=== PATIENT | female | born 1975 | race Caucasian/White ===

== ENCOUNTER 2020-06-18 08:06 | Outpatient (REF) | payer OTHER, SELFPAY ==
--- NOTE | ~2020-06-18 | MM_ITS ---
EXAMINATION: MM SCREENING DIGITAL BREAST TOMOSYNTHESIS, BILATERAL CLINICAL INFORMATION: Screening. Asymptomatic. The lifetime risk of breast cancer based on the Tyrer-Cuzick Model is 11%. COMPARISON: Mammography: 02/11/2018, 08/17/2016 TECHNIQUE: Digital breast tomosynthesis is performed in both the craniocaudal and mediolateral oblique views along with computer-aided detection (CAD). Synthesized 2D images are generated from the tomosynthesis. FINDINGS: There are scattered areas of fibroglandular density (ACR BI-RADS breast composition Category b). There are no significant masses, abnormal calcifications, or other abnormalities. Parenchymal pattern is similar to prior exams. No significant changes. MM/MM tomosynthesis screening BI IMPRESSION: No mammographic evidence of malignancy. ASSESSMENT: BI-RADS 1: Negative RECOMMENDATION: Routine annual mammography screening. This patient's information was entered into a reminder system with a target due date for their next mammogram.
== END 2020-06-18 08:07 | disposition home or self-care (01) ==
LOC: HO.MAMMO 08:06
PROVIDERS: PCP Nurse Practitioner Family; Visit Provider Nurse Practitioner Primary Care
DX: Z12.31 Encounter for screening mammogram for malignant neoplasm of breast (principal)
CPT/HCPCS: 77063; 77067

== ENCOUNTER 2020-08-22 09:40 | Outpatient (REF) | payer OTHER, SELFPAY ==
--- NOTE | 2020-08-22 09:43 | EMG_ITS ---
Right median and ulnar motor and sensory studies were performed. Right radial sensory study was performed and paraspinal muscles were tested. IMPRESSION: Mild right median neuropathy across carpal tunnel. MD CARROLL Werner/INDY / [id number]
== END 2020-08-22 09:41 | disposition home or self-care (01) ==
LOC: HO.NEURO 09:40
PROVIDERS: PCP Nurse Practitioner Primary Care; Visit Provider Nurse Practitioner Primary Care
DX: M79.641 Pain in right hand (principal); R20.0 Anesthesia of skin
CPT/HCPCS: 95886; 95909

== ENCOUNTER 2021-07-08 14:18 | Emergency (ER) | payer OTHER, SELFPAY ==
--- NOTE | ~2021-07-08 | XR_ITS ---
EXAMINATION: XR WRIST, LEFT CLINICAL INFORMATION: Posterior side of wrist COMPARISON: Left hand x-ray December 2014 TECHNIQUE: Four views of the left wrist. FINDINGS: Bone alignment is normal. No fracture or dislocation is seen. Joint spaces are normal. There is evidence of trauma to the soft tissues over the volar distal forearm. There are 2 radiopaque densities in the soft tissues adjacent to the medial distal ulnar shaft suggestive of soft tissue foreign bodies. One is rectangular in shape measuring 1 x 2 mm and one is triangular in shape measuring 2 mm. These are unchanged from December 2014. XR/XR wrist LT 2V IMPRESSION: No fracture. Trauma to the volar soft tissues of the distal forearm. No volar soft tissue foreign body seen. 2 radiopaque soft tissue foreign bodies adjacent to the medial distal ulnar shaft unchanged from 2015 exam..
[2021-07-08 14:41] VITALS: BP 106/67; PULSE 84; RESP 19; TEMP 37.2; O2SAT 98; BMI 34.3
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
[2021-07-08] MEDS: Lidocaine HCl 2 % MPF 5 ML VIAL SUBCUT ×4 (15:33→17:12)
[2021-07-08] MEDS: oxyCODONE HCl Immed Release 5 MG TABLET PO (15:34)
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
== END 2021-07-08 17:57 | disposition home or self-care (01) ==
PROVIDERS: Emergency Provider Internal Medicine; PCP Nurse Practitioner Primary Care
DX: S61.512A Laceration without foreign body of left wrist, initial encounter (principal); S54.12XA Injury of median nerve at forearm level, left arm, initial encounter; S66.922A Laceration of unspecified muscle, fascia and tendon at wrist and hand level, left hand, initial encounter; S61.502A Unspecified open wound of left wrist, initial encounter; W25.XXXA Contact with sharp glass, initial encounter; Y93.E9 Activity, other interior property and clothing maintenance; Y92.039 Unspecified place in apartment as the place of occurrence of the external cause; Y99.9 Unspecified external cause status
CPT/HCPCS: 12042; 73100; 99284; 99291

== ENCOUNTER 2021-07-10 05:55 | Day surgery (SDC) | payer OTHER, SELFPAY ==
[2021-07-10] VITALS (7 sets, daily range): BP systolic 109–147; BP diastolic 68–93; PULSE 61–88; RESP 16–20; TEMP 36.3–36.9; O2SAT 96–100; BMI 34.3
[2021-07-10 06:31] LABS: UPreg QC Valid YES; Urine Pregnancy NEGATIVE (NEGATIVE)
[2021-07-10] MEDS: Lactated Ringers 1,000 ML 100 ML IVCONT (06:39)
--- NOTE | 2021-07-10 07:20 | HO.ANESPROP2 ---
[facility] Active Problems Active Problems: All Active Problems (Updated 07/09/21 @ 16:10 by Tash Ramirez MD) Flexor tendon laceration of left wrist with open wound (Acute) Laceration of left median nerve (Acute) Laceration of left wrist with tendon involvement (Acute) Past Medical History Functional capacity: independent ambulation Patient : No Family History Family history of problems with anesthesia: No Surgical History History of Problems with Anesthesia: No Social History Social History Patient Tobacco Use Status: Current everyday Tobacco user Cigarettes Per Day: 4 Use of substances other than those prescribed or required for medical reasons: Yes Substance Use Frequency: Monthly Are you DNR?: No Advance Directives: No Advance Directives Information Provided: Yes Meds Allergies Allergy/AdvReac Type Severity Reaction Status Date / Time Dust Mite Mixed Allergen Ext Allergy Unknown Unknown Uncoded 07/09/21 12:15 Active Medications: Current Medications Lactated Ringer's (Lr) 1,000 mls @ 100 mls/hr IVCONT .Q10H ARON Last Admin: 07/10/21 06:39 Dose: 100 mls/hr Documented by: Exam Exam Date and Time: July 10, 2021 0720 Height,Weight and Vital Signs: Height 4 ft 11 in Weight 77.111 kg Last Vital Signs Temp 98.4 F 07/10/21 06:20 Pulse 61 07/10/21 06:20 Resp 18 07/10/21 06:20 BP 115/68 07/10/21 06:20 Pulse Ox 96 07/10/21 06:20 Pertinent Lab Results Pertinent Lab Results: Laboratory Tests 07/10/21 06:11 Urine Test NEGATIVE Airway Mallampati Class: II TM Dist: >3cm Neck ROM: Full Heart: RRR Lungs: CTA Assessment and Plan Final Anesthetic Review Family History of Problems with Anesthesia: No History of Problems with Anesthesia: No ASA Class: II Final Preanesthetic Review: No Changes in Pt Med Stat, Meds/Allgs Chart Reviewed, Consent Obtained/Reviewed and Anes Risks/Benef Reviewed Patient Risk: Low Procedure Risk: Low Anesthetic Plan Anesthetic Plan: GA Disposition: Standard PACU
--- NOTE | 2021-07-10 07:52 | P.OP_ITS ---
Operative Note Operative Note Date of Service: 07/10/21 Narrative: Operative Note Narrative: Preop diagnosis: 1. Left volar forearm laceration with laceration of flexor tendons and the possibly the median nerve Postop diagnosis: 1. Left volar forearm laceration, 6.5 cm 2. Left flexor carpi radialis tendon laceration 3. Left palmaris longus tendon laceration Procedure: 1. Left volar forearm laceration wound exploration, irrigation and debridement 2. Left median nerve neurolysis 3. Left flexor carpi radialis tendon repair 4. Left palmaris longus tendon repair Surgeon: Tash Ramirez MD Anesthesia: General Findings: lacerations of the flexor carpi radialis and palmaris longus tendons. The laceration through the soft tissues of the volar forearm extended down to the level of the epineurial of the median nerve. The epineurial did not appear to be violated. palmar cutaneous nerve appeared to be intact. The deeper Finger flexor tendons did not appear to be involved. Implants: none Tourniquet time: 50 minutes EBL: 5.0 ml Specimen: none Drains: None Complications: None Disposition: Brought to the recovery room in stable condition Plan: Follow-up in 10-14 days for wound check, suture removal and placement in a shor t-arm cast with the wrist in slight flexion. Finger motion can be allowed. Indications: The patient is a 45 year old woman with a left volar forearm laceration involving flexor tendons and Possibly the median nerve . The risks and benefits of operative treatment, including but not limited to risk of damage to blood vessels, nerves, tendons, infection, recurrence, persistent pain or numbness, incomplete resolution of preoperative symptoms, or need for further surgery were discussed with the patient and they wished to proceed with surgery. Procedure: Once consent was obtained patient was brought back to the operating suite and placed in the operating table in a supine position. . Perioperative antibiotics and anesthesia was administered by the anesthesia team. A tourniquet was applied to the proximal aspect of the left upper extremity and the limb was prepped and draped in a standard surgical fashion. The limb was elevated exsanguinated with Esmarch bandage and the tourniquet inflated to 250 mm of mercury for a total tourniquet time of 50 minutes. She has approximately 6.5 cm transverse laceration across the left volar distal forearm. I extended this distally on the ulnar aspect of the laceration by about 1 cm and proximally on the radial aspect of the laceration by approximately 1 cm. This was done using a 15. Blade through the skin to the subcutaneous tissues. The wound was then carefully explored. We identified a laceration of the flexor carpi radialis tendon as well as the palmaris longus tendon. The laceration did appear to extend down to the level of the median nerve and the palmar cutaneous nerve incising the overlying tissues. A neurolysis was performed and loops were utilized to further evaluate any injury to the median nerve or the palmar cutaneous nerve. Fortunately, the epineurial did not appear to be violated and the nerve appears to be intact. Palmar cutaneous nerve also appears to be in continuity. Evaluation of the deeper tendons showed that they did not appear to be injured. The wound was copiously irrigated with normal saline. Skin edges were sharply debrided of any nonviable tissue. The flexor carpi radialis tendon was reapproximated with a 4 core suture technique using 3-0 Ethibond suture. Two additional course sutures were then added also using 3-0 Ethibond. The palmaris longus tendon was also cyndie pproximated with some 3-0 Ethibond suture. At this point the tourniquet was deflated and hemostasis obtained with a brief period of local pressure and bipolar electrocautery. The wound was copiously irrigated with normal saline. The skin edges were reapproximated with 4-0 and5-0 nylon suture. The wound was infiltrated with some 1% lidocaine with epinephrine for postop pain control and a sterile dressing was applied. a dorsal blocking splint was applied holding the wrist in some flexion. The patient appears to have tolerated the procedure well and with no complications. All digits were well vascularized conclusion of the case.
--- NOTE | 2021-07-10 07:52 | MHC.SHP ---
Pre-Procedural Eval Section A Date of Service: 07/10/21 The patient is an INPATIENT: No Changes since office visit: No Cold of Flu in the past 2 weeks, No New Medical Problems, No Changes in Medication and No Patient answered all questions The History & Physical has been completed within 30 days and I have reviewed it.: Yes Section B Chief Complaint: lac of muscle and nerve Allergies: Allergies Allergy/AdvReac Type Severity Reaction Status Date / Time Dust Mite Mixed Allergen Ext Allergy Unknown Unknown Uncoded 07/09/21 12:15 Plan I have reviewed the history and physical and performed a pertinent physical examination on my patient. No changes have occurred unless specified.
[2021-07-10] MEDS: oxyCODONE HCl Immed Release 5 MG TABLET 10 MG PO (10:11)
== END 2021-07-10 12:05 | disposition home or self-care (01) ==
PROVIDERS: Nurse Practitioner; Visit Provider Orthopaedic Surgery
PROC: (CPT 25260; principal; 2021-07-10 07:30)
DX: S54.12XA Injury of median nerve at forearm level, left arm, initial encounter (principal); S56.222A Laceration of other flexor muscle, fascia and tendon at forearm level, left arm, initial encounter; W25.XXXA Contact with sharp glass, initial encounter; Y93.89 Activity, other specified; Y92.9 Unspecified place or not applicable; Y99.8 Other external cause status; G62.9 Polyneuropathy, unspecified
CPT/HCPCS: 25260 ×2; 64708; 81025; J0131; J0690; J1100; J2250; J2405; J3010

== ENCOUNTER → 2021-07-29 15:16 | Outpatient (BNVA) | payer OTHER, SELFPAY | PROVIDERS: Visit Provider Orthopaedic Surgery | DX: S66.922D Laceration of unspecified muscle, fascia and tendon at wrist and hand level, left hand, subsequent encounter (principal); S61.502D Unspecified open wound of left wrist, subsequent encounter | CPT/HCPCS: 99212 ==

== ENCOUNTER → 2021-08-06 07:51 | Outpatient (BNVA) | payer OTHER, SELFPAY | PROVIDERS: Visit Provider Orthopaedic Surgery | DX: S66.922D Laceration of unspecified muscle, fascia and tendon at wrist and hand level, left hand, subsequent encounter (principal); S61.502D Unspecified open wound of left wrist, subsequent encounter | CPT/HCPCS: 29075; 99212 ==

== ENCOUNTER → 2021-08-19 09:37 | Outpatient (BNVA) | payer OTHER, SELFPAY | PROVIDERS: Visit Provider Orthopaedic Surgery | DX: S66.922D Laceration of unspecified muscle, fascia and tendon at wrist and hand level, left hand, subsequent encounter (principal); S61.502D Unspecified open wound of left wrist, subsequent encounter | CPT/HCPCS: 99212 ==

== ENCOUNTER → 2021-10-14 09:02 | Outpatient (BNVA) | payer OTHER, SELFPAY | PROVIDERS: Visit Provider Orthopaedic Surgery | DX: S61.512D Laceration without foreign body of left wrist, subsequent encounter (principal) | CPT/HCPCS: 99212 ==

== ENCOUNTER 2023-01-28 | Outpatient (REF) | payer OTHER, SELFPAY ==
[2023-02-02 21:18] LABS: HPV mRNA E6/E7 rflx Not Detected (Not Detected)
[2023-02-02 23:08] LABS: C. trachomatis RNA TMA DETECTED (NOT DETECTED); N. gonorrhoeae RNA TMA NOT DETECTED (NOT DETECTED); Trichomonas (NAAT) DETECTED (NOT DETECTED)
== END 2023-01-28 00:01 | disposition home or self-care (01) ==
LOC: HO.HHCLNP
PROVIDERS: Visit Provider Advanced Practice Midwife
DX: Z12.4 Encounter for screening for malignant neoplasm of cervix (principal); Z11.51 Encounter for screening for human papillomavirus (HPV)
CPT/HCPCS: 36415; 87491; 87591; 87624; 87661; 88142

== ENCOUNTER 2023-03-22 18:17 | Outpatient (REF) | payer OTHER, SELFPAY ==
[2023-03-23 11:02] LABS: CT PCR NOT DETECTED (Not Detect.); NG PCR NOT DETECTED (Not Detect.)
[2023-03-23 14:26] LABS: BV Int Neg Control Negative (Negative); BV Int Pos Control Positive (Positive)
== END 2023-03-22 18:18 | disposition home or self-care (01) ==
LOC: HO.HHCLNP 18:17
PROVIDERS: Visit Provider Emergency Medicine
DX: Z20.2 Contact with and (suspected) exposure to infections with a predominantly sexual mode of transmission (principal)
CPT/HCPCS: 0353U; 87480; 87510; 87660

== ENCOUNTER 2023-09-28 21:50 | Emergency (ER) | payer OTHER, SELFPAY ==
--- NOTE | ~2023-09-28 | CT_ITS ---
EXAMINATION: CT HEAD WITHOUT CONTRAST CLINICAL INFORMATION: Altered mental status. Weakness. COMPARISON: None available. TECHNIQUE: Contiguous axial imaging was performed from the skull base to vertex without intravenous administration of contrast. This CT examination was performed using dose optimization techniques as appropriate, variously including the following: *Automated exposure control *Adjustment of mA and/or kV according to patient size (this includes techniques or standardized protocols for targeted exams where dose is matched to indication/reason for exam; i.e. extremities or head) *Use of iterative reconstruction technique DLP: 620 mGy-cm FINDINGS: The lateral, third and fourth ventricles are normally outlined. The cortical sulci and basal cisterns are normally outlined as well. There appears to be mild bilateral periventricular and central white matter image attenuation. There is a small right frontal periventricular white matter hypodensity. There is no midline shift. The extra-axial spaces are unremarkable. Calvarium/scalp: Intact. Maxillofacial sinuses and mastoids: Clear as visualized. CT/CT head/brain wo IV con IMPRESSION: 1. No acute intracranial process seen. 2. There is a small right frontal periventricular white matter hypodensity which could represent an age-indeterminate infarct. There is mild bilateral periventricular and central white matter low attenuation which could be secondary to chronic small vessel ischemic changes.
[2023-09-28 22:12] VITALS: BP 104/62; BP 93/55; PULSE 53; PULSE 82; RESP 12; TEMP 36.1; O2SAT 97; O2SAT 98; BMI 32.8
--- NOTE | 2023-09-28 22:33 | PC.NURSE ---
Patient wheeled in on wheelchair from triage needing assistance to move patient to stretcher. Patient states that she was outside all day today Just talking to nature . States she last used cocaine 2 days ago, denies other drug use. Patient states she's feeling weak everywhere and that if she didn't call 911 she was going to out there tonight . Security at bedside to check patient belongings, patient changed in hospital [facility] with belongings on back of stretcher.
--- NOTE | 2023-09-28 22:49 | ED.GENADULT ---
HPI - General Adult General Chief complaint: Weakness Stated complaint: generalized body pain for several days Time Seen by Provider: 09/28/23 22:40 Source: patient and EMS Mode of arrival: EMS Limitations: altered mental status History of Present Illness ED Provider: jameel JULIO narrative: Patient with history of cocaine abuse was feeling weak all day with pain in bilateral feet in was in the park passed out answering very vaguely in the ER did say that he she used cocaine 3 days ago. Patient has been sleeping since arrival no signs of head injury Related Data Previous Rx's ?Medication ?Instructions ?Recorded acetaminophen 500 mg tablet 1,000 mg (2 x 500 mg) PO QID PRN 07/08/21 (Tylenol Extra Strength) fever or pain #14 tabs cephalexin 500 mg capsule 500 mg PO Q6H 10 days #40 caps 07/08/21 oxycodone 5 mg tablet 5 mg PO Q6H PRN pain #10 tabs 07/08/21 hydrocodone 5 mg-acetaminophen 325 1 tab PO Q4-6H PRN pain #15 tabs 07/10/21 mg tablet Allergies Allergy/AdvReac Type Severity Reaction Status Date / Time Dust Mite Mixed Allergen Ext Allergy Unknown Unknown Uncoded 09/28/23 22:17 Review of Systems Review of Systems: Yes Unobtainable due to mental status PMFSH Social History Social History Patient Tobacco Use Status: Current everyday Tobacco user Cigarettes Per Day: 4 Smoked in Last 30 Days: Yes Use of substances other than those prescribed or required for medical reasons: Yes Substance Use Type: Crack/Cocaine Substance Use Frequency Other:: 2 days Last Used Substance: Days (ago) Do you have a plan to hurt others: No Plan Current occupation: rt hand Physical Exam ED Vital Signs: Vital Signs - 24 hr 09/28/23 22:12 09/28/23 23:51 Temperature 96.9 F 97.6 F Pulse Rate 53 56 Respiratory Rate 12 14 Blood Pressure 93/55 L 93/57 L Pulse Oximetry 98 99 Oxygen Delivery Method Room Air Room Air BMI result Body Mass Index 32.8 Appearance: Sleeping No acute distress. Eyes: PERRLA, No Nystagmus ENT: Pharynx normal. Oral Mucosa moist Neck: Normal inspection. Neck supple. CVS: Normal heart rate and rhythm. Pulses normal. Respiratory: No respiratory distress. Equal air entry bilateral, no wheezing/rales/rhonchi Abdomen: Soft and nontender. Bowel sounds are present, no mass palpable, no CVA tenderness Skin: Skin warm and dry. Normal skin color. Normal skin turgor. Extremities: No lower extremity edema. No calf tenderness Neuro: Sleeping easily arousable, No motor deficit. No sensory deficit.No cerebellar signs , cranial nerves II-XII intact Medical Decision Making Medical Decision Making [facility] Narrative: Patient's substance abuse sleeping since he arrived did not give any urine sample will do the straight cath and get the urine sample will also do CT scan of the head although this no signs of injury patient is signed out to Dr. Bullard pending drug screening if drug screening negative further evaluation Differential Diagnosis Differential Diagnoses: The differential diagnosis associated with the presentation includes Substance abuse/metabolic encephalopathy Lab Data [facility] Lab Attestation statement: I reviewed the patient's lab results. 09/28/23 23:32 09/28/23 23:21 Labs: Lab Results 09/28/23 09/28/23 Range/Units 23:21 23:32 WBC 8.3 (4.8-10.8) X10*3/uL RBC 3.86 L (4.20-5.50) X10*6/uL Hgb 12.2 (12.0-16.0) g/dl Hct 36.4 L (37.0-47.0) % MCV 94.3 (80.0-98.0) fL MCH 31.6 (27.0-33.0) pg MCHC 33.5 (31.0-35.0) g/dl RDW 14.8 (11.0-16.0) % Plt Count 331 (160-400) X10*3/uL MPV 9.7 (9.4-12.3) fL Immature Gran % (Auto) 0.5 H (0.0-0.4) % Neut % (Auto) 71.5 (45-73) % Lymph % (Auto) 19.6 L (20-40) % [place] % (Auto) 7.1 (2-11) % Eos % (Auto) 1.1 (0-4) % Baso % (Auto) 0.2 (0-2) % Lymph # (Auto) 1.6 (1.2-4.9) X10*3/uL [place] # (Auto) 0.6 (0.1-1.2) X10*3/uL Eos # (Auto) 0.1 (0.0-0.4) X10*3/uL Baso # (Auto) 0.0 (0.0-0.2) X10*3/uL Abs Immat Gran (auto) 0.04 H (0.00-0.03) X10*3/uL Absolute Neuts (auto) 5.9 (2.0-8.3) x10*3/uL Absolute Nucleated RBC 0.000 (0.0-0.012) X10*3/uL Nucleated RBC % (auto) 0.0 (0.0-0.2) /100WBC Sodium 143 (135-145) mmol/L Potassium 3.6 (3.3-5.1) mmol/L Chloride 109 H (96-108) mmol/L Carbon Dioxide 23 (22-29) mmol/L Anion Gap 15 (12-20) BUN 12 (9-16) mg/dL Creatinine 0.75 (0.5-1.4) mg/dL Estim Creat Clear Calc 94.1 Estimated GFR > 60 Random Glucose 101 (60-115) mg/dL Calcium 8.9 (8.4-10.2) mg/dL Total Bilirubin 0.9 (0.0-1.0) mg/dL Direct Bilirubin 0.3 (0.0-0.5) mg/dL AST 16 (5-31) U/L ALT 14 (0-31) U/L Alkaline Phosphatase 65 (39-117) U/L Total Protein 7.1 (6.5-8.0) g/dL Albumin 4.0 (3.5-5.0) g/dL Ethyl Alcohol < 10 mg/dL Discharge Plan Discharge Clinical Impression: Polysubstance abuse Patient Disposition: Still a Patient Prescriptions: No Action cephalexin 500 mg capsule 500 mg PO Q6H 10 Days Qty: 40 0RF acetaminophen [Tylenol Extra Strength] 500 mg tablet 1,000 mg PO QID PRN (Reason: fever or pain) Qty: 14 0RF oxycodone 5 mg tablet 5 mg PO Q6H PRN (Reason: pain) Qty: 10 0RF hydrocodone-acetaminophen 5-325 mg tablet 1 tab PO Q4-6H PRN (Reason: pain) Qty: 15 0RF Print Language: Faroese
[2023-09-28 23:37] LABS: Basophils Percent Auto 0.2 % (0-2); Eosinophils Absolute Auto 0.1 X10*3/uL (0.0-0.4); Eosinophils Percent Auto 1.1 % (0-4); Hematocrit 36.4 % (37.0-47.0); Hemoglobin 12.2 g/dl (12.0-16.0); Imm Gran Abs Auto 0.04 X10*3/uL (0.00-0.03); Imm Gran Pct Auto 0.5 % (0.0-0.4); Lymphocytes Absolute Auto 1.6 X10*3/uL (1.2-4.9); Lymphocytes Percent Auto 19.6 % (20-40); MANUAL DIFF FLAG NO; Mean Corpuscular HGB Conc 33.5 g/dl (31.0-35.0); Mean Corpuscular Hemoglobin 31.6 pg (27.0-33.0); Mean Corpuscular Volume 94.3 fL (80.0-98.0); Mean Platelet Volume 9.7 fL (9.4-12.3); Monocytes Absolute Auto 0.6 X10*3/uL (0.1-1.2); Monocytes Percent Auto 7.1 % (2-11); Neutrophils Absolute Auto 5.9 x10*3/uL (2.0-8.3); Neutrophils Percent Auto 71.5 % (45-73); Platelet Count 331 X10*3/uL (160-400); Red Blood Count 3.86 X10*6/uL (4.20-5.50); Red Cell Distribution Width 14.8 % (11.0-16.0); White Blood Count 8.3 X10*3/uL (4.8-10.8)
[2023-09-28 23:49] LABS: Ethanol < 10 mg/dL
[2023-09-28 23:50] LABS: Anion Gap 15 (12-20); Blood Urea Nitrogen 12 mg/dL (9-16); Calcium 8.9 mg/dL (8.4-10.2); Carbon Dioxide 23 mmol/L (22-29); Chloride 109 mmol/L (96-108); Creatinine Clr Calc Pharmacy 94.1; Estimated Glomerular Filt Rate > 60; Glucose Random 101 mg/dL (60-115); Potassium 3.6 mmol/L (3.3-5.1); Sodium 143 mmol/L (135-145)
[2023-09-28 23:51] VITALS: BP 93/57; PULSE 56; RESP 14; TEMP 36.4; O2SAT 99
[2023-09-28 23:52] LABS: Alanine Aminotransferase 14 U/L (0-31); Alkaline Phosphatase 65 U/L (39-117); Aspartate Amino Transferase 16 U/L (5-31); Bilirubin Direct 0.3 mg/dL (0.0-0.5); Bilirubin Total 0.9 mg/dL (0.0-1.0); Total Protein 7.1 g/dL (6.5-8.0)
[2023-09-29] VITALS (7 sets, daily range): BP systolic 90–114; BP diastolic 48–70; PULSE 51–70; RESP 12–16; TEMP -17.7–36.6; O2SAT 94–98
--- NOTE | 2023-09-29 00:26 | PC.NURSE ---
Assumed care of pt at 2300. Labs tammy, pt moved to ED8 to be placed on monitor d/t being found unconscious prior to arrival.
--- NOTE | 2023-09-29 03:09 | PC.NURSE ---
PT difficult to wake, but once awake pt speaking in full sentences. PT reports she has been falling, and is dehydrated . PTnot able to provide urine sample. bladder scan [address]
--- NOTE | 2023-09-29 03:49 | PC.NURSE ---
pt eating sandwich and drinking gingerale, A/O at this time. Pt is aware she needs to give UA sample and reports after she drinks she will try to urinate
--- NOTE | 2023-09-29 04:35 | MHC.EDTECH ---
pt placed on bedpan, attempting to obtain urine sample
[2023-09-29 04:55] LABS: Appearance Urine Turbid; Color Urine Dark Yellow; Glucose Urine UA Negative (Negative); Leukocyte Esterase Urine Trace (Negative); Nitrite Urine Negative (Negative); PH 5.5 (5.0-9.0); Specific Gravity - Urine >= 1.030 (1.005-1.025); UMIC TRIGGER UACC YES; Urine Blood Negative (Negative); Urine Ketones Trace mg/dL (Negative); Urine Protein 100 (2+) mg/dL (Neg-Trace)
[2023-09-29 05:03] LABS: Bacteria Urine 4+ (None Seen); Calcium Oxalate Crystals Urine Present; Hyaline Casts Urine >20 /LPF (0-2); RBC Urine 0-2 /HPF (0-2); Squamous Epithelial Cell Urine >20 /HPF (0-2); UACC Culture Trigger YES
[2023-09-29 05:22] LABS: Amphetamine Screen Urine Not Detected (Not Detect); Barbiturates, Urine Not Detected (Not Detect); Benzodiazepines Screen Urine Not Detected (Not Detect); Buprenorphine Scr Not Detected (Not Detect); Cannabinoid Screen Urine POSITIVE (Not Detect); Cocaine Screen Urine POSITIVE (Not Detect); Fentanyl, urine Not Detected (Not Detect); Methadone Screen, Urine Not Detected (Not Detect); Opiate Screen Urine Not Detected (Not Detect); Oxycodone Screen Urine Not Detected (Not Detect); Phencyclidine Screen Urine Not Detected (Not Detect)
[2023-09-29] MEDS: Ibuprofen 400 MG TABLET PO (11:22)
[2023-09-29] MEDS: Naloxone HCl Nasal TAKE HOME 4 MG SPRAY 8 MG NOSTRILALT (11:23)
== END 2023-09-29 11:28 | disposition home or self-care (01) ==
PROVIDERS: Internal Medicine; Emergency Provider Emergency Medicine Emergency Medical Services
DX: F19.10 Other psychoactive substance abuse, uncomplicated (principal); R53.1 Weakness; M79.672 Pain in left foot; M79.671 Pain in right foot
CPT/HCPCS: 36415; 51701; 70450; 80048; 80076; 80307; 81001; 85025; 87086; 99285

== ENCOUNTER 2024-03-13 14:09 | Emergency (ER) | payer OTHER, SELFPAY ==
[2024-03-13] VITALS (15 sets, daily range): BP systolic 118–178; BP diastolic 82–99; PULSE 64–109; RESP 12–28; TEMP 36.6–36.8; O2SAT 92–100; BMI 30.3
--- NOTE | ~2024-03-13 | XR_ITS ---
EXAMINATION: XR ELBOW, LEFT CLINICAL INFORMATION: fall, pain. low suspicion fx/dislocation COMPARISON: None available. TECHNIQUE: Two views of the left elbow. FINDINGS: The bones and soft tissues are normal. No fracture or joint effusion. Alignment is anatomic. Joint spaces are maintained. XR/XR elbow LT 2V IMPRESSION: Normal left elbow. Electronically signed by: Leonard Yip MD 03/13/2024 05:20 PM EST
--- NOTE | ~2024-03-13 | XR_ITS ---
EXAMINATION: XR SHOULDER, LEFT CLINICAL INFORMATION: post reduction COMPARISON: 03/13/2024 TECHNIQUE: Portable AP view of the left shoulder. FINDINGS: Anterior dislocation again seen at the glenohumeral joint with no significant change in overall positioning. A large displaced fracture fragment is again seen involving the greater tuberosity of the humeral head XR/XR shoulder LT min 2V IMPRESSION: Anterior dislocation of the glenohumeral joint with displaced fracture of the greater tuberosity. No significant change Electronically signed by: Abel Marie MD 03/13/2024 08:38 PM EST RP
--- NOTE | ~2024-03-13 | XR_ITS ---
EXAMINATION: XR SHOULDER, LEFT CLINICAL INFORMATION: fall, pain COMPARISON: None available. TECHNIQUE: Four views of the left shoulder. FINDINGS: Displaced fracture of the superior lateral humeral head. There is dislocation of the glenohumeral joint. The humerus is anterior to the glenoid. No fracture of the left clavicle. The acromioclavicular joint is normal. XR/XR shoulder LT min 2V IMPRESSION: 1. Displaced fracture of the superior lateral humeral head. 2. Dislocation of the glenohumeral joint. Electronically signed by: Leonard Yip MD 03/13/2024 06:16 PM SIENA [facility]
--- NOTE | ~2024-03-13 | XR_ITS ---
EXAMINATION: XR SHOULDER, LEFT CLINICAL INFORMATION: post reduction COMPARISON: 03/13/2024 TECHNIQUE: Portable AP views of the left shoulder. FINDINGS: Multiple additional attempts at reduction of the anterior dislocation was finally successful on image #4. Comminuted fracture is again seen of the greater tuberosity of the humeral head XR/XR shoulder LT 1V IMPRESSION: Successful reduction of the anterior dislocation. Electronically signed by: Abel Marie MD 03/13/2024 08:40 PM SIENA
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
[2024-03-13] MEDS: oxyCODONE HCl Immed Release 5 MG TABLET PO (14:50)
[2024-03-13 15:23] LABS: MANUAL DIFF FLAG NO
[2024-03-13 15:25] LABS: Basophils Percent Auto 0.3 % (0-2); Eosinophils Absolute Auto 0.1 X10*3/uL (0.0-0.4); Hematocrit 42.4 % (37.0-47.0); Imm Gran Abs Auto 0.04 X10*3/uL (0.00-0.03); Imm Gran Pct Auto 0.4 % (0.0-0.4); Lymphocytes Absolute Auto 1.7 X10*3/uL (1.2-4.9); Lymphocytes Percent Auto 16.7 % (20-40); Mean Corpuscular Hemoglobin 30.9 pg (27.0-33.0); Mean Corpuscular Volume 93.6 fL (80.0-98.0); Mean Platelet Volume 9.5 fL (9.4-12.3); Monocytes Absolute Auto 0.4 X10*3/uL (0.1-1.2); Neutrophils Percent Auto 77.6 % (45-73); Platelet Count 421 X10*3/uL (160-400); Red Blood Count 4.53 X10*6/uL (4.20-5.50); Red Cell Distribution Width 15.7 % (11.0-16.0); White Blood Count 10.3 X10*3/uL (4.8-10.8)
[2024-03-13 15:36] LABS: Anion Gap 15 (12-20); Blood Urea Nitrogen 11 mg/dL (9-16); Calcium 8.6 mg/dL (8.4-10.2); Carbon Dioxide 21 mmol/L (22-29); Chloride 107 mmol/L (96-108); Creatinine Clr Calc Pharmacy 68.7; Estimated Glomerular Filt Rate > 60; Ethanol 75 mg/dL; Glucose Random 107 mg/dL (60-115); Potassium 3.9 mmol/L (3.3-5.1); Sodium 139 mmol/L (135-145)
--- NOTE | 2024-03-13 16:26 | PC.NURSE ---
pt assisted oob to commode
[2024-03-13] MEDS: propofoL 200 MG/20 ML VIAL 68.039 MG IVPUSH ×2 (17:43→17:51)
[2024-03-13] MEDS: Ketamine HCl/NS 50 MG/5 ML SYRINGE 68.039 MG IVPUSH ×2 (18:08→18:20)
--- NOTE | 2024-03-13 18:59 | PC.NURSE ---
At bedside w/ María & Dr. Milton during patient's conscious sedation procedure. Patient very resistant to initial sedation, dosed w/ 1mg/kg Propofol x 2, initial attempt at reduction unsuccessful. Patient then doses w/ 1mg/kg ketamine, second reduction unsuccessful, second dose of 1mg/kg ketamine given, second , dr. granadosches to bedside to help reduce, 4mg Versed verbal order given, 3rd reduction attempt w/ both doctors successful, confirmed w/ xray. Patient presently resting quietly on stretcher at this time, sling in place.
== END 2024-03-13 21:05 | disposition home or self-care (01) ==
PROVIDERS: Emergency Provider Emergency Medicine
DX: S43.005A Unspecified dislocation of left shoulder joint, initial encounter (principal); S42.252A Displaced fracture of greater tuberosity of left humerus, initial encounter for closed fracture; V18.0XXA Pedal cycle driver injured in noncollision transport accident in nontraffic accident, initial encounter; Y93.89 Activity, other specified; Y92.9 Unspecified place or not applicable; Y99.9 Unspecified external cause status; M25.512 Pain in left shoulder; M25.522 Pain in left elbow
CPT/HCPCS: 23665; 36415; 73020; 73030; 73070; 80048; 80307; 85025; 96374; 96375; 99152; 99153; 99284; 99285; J2250; J2704

== ENCOUNTER 2024-06-12 13:30 | Outpatient (REF) | payer OTHER, SELFPAY ==
--- NOTE | ~2024-06-12 | XR_ITS ---
EXAMINATION: XR FOOT 3 OR MORE VIEWS RIGHT HISTORY: right toe abscess COMPARISON: There are no prior studies available for comparison. FINDINGS: Four views of the right foot are submitted. Osseous mineralization is normal. There is no fracture or dislocation. The joint spaces are preserved. There is soft tissue swelling over the 5th MTP joint. XR/XR foot RT min 3V IMPRESSION: Soft tissue swelling over the 5th MTP joint. No plain film evidence of osteomyelitis. If this is a clinical concern, three-phase bone scan or MRI is recommended. Electronically signed by: Dusty Hampton MD 06/12/2024 02:03 PM [facility]
--- OUTSIDE RECORDS SUMMARY | 2024-06-12 15:28 | XMS_ITS | Encounter Summary ---
Author Organization [employer] Address [address] [place] [address] Care Team Providers Care Plasterer Spot Name Role Phone María Norris GIL Primary Care Provider [phone] Reason for Visit * Reason Comments Abscess Encounter Details Date Type Department Care Team ([facility] st Contact Info) Description 06/12/2024 1:00 PM EST Office Visit [facility] [address] [place], [place] [phone] Abscess of fifth toe, right (Primary Dx); Encounter for immunization Social History Tobacco Use Types Packs/Day Years Used Date Smoking Tobacco: Every Day Passive Smoke Exposure: Current Smokeless Tobacco: Never Tobacco Cessation:Ready to Q uit: Not Asked; Counseling Given: Not Answered Alcohol Use Standard Drinks/Week Comments Never 0 (1 standard drink = 0.6 oz pur e alcohol) Depression Answer Date Recorded Patient Health Questionnaire-9 Score 8 05/15/2022 Housing Stability Answer Date Recorded What is your housing situation today? I do not have housing (Staying with others, in a hotel, in a half-way, living outside on the street, on a beach, in a car, or in a park 01/24/[address] you li ve. Do you have problems with any of the following? None of the above 01/24/2023 Food Insecurity Answer Date Recorded Within the past 12 months, y ou worried that your food would run out before you got money to buy more: Sometimes True 2022 Within the past 12 months,th e food you bought just didn't last and you didn't have enough money to get more: Sometimes True 02/02/2023 Transportation Answer Date Recorded In the past 12 months, has l ack of transportation kept you from medical appts, meetings, work or from getting things needed for daily living? No 02/02/2023 Utilities Answer Date Recorded In the past 12 months, has t he electric, gas, oil or water company threatened to shut off services in your home? No 02/02/2023 Depression Answer Date Recorded Patient Health Questionnaire-2 Score 4 05/15/2022 Comments No Sex and Gender Information Value Date Recorded Sex Assigned at Female 02/16/2022 10:21 AM EDT Legal Sex Female 10:21 AM EDT Gender Identity Female 02/16/2022 10:21 AM EDT Sexual Orientation Straight 02/16/2022 10 :21 AM EDT documented as of this encounter Last Filed Vital Signs Vital Sign Reading Time Taken Comments Blood Pressure 146/87 06/12/2024 12:52 PM EST Pulse 65 06/12/2024 12:52 PM EST Temperature 36.6 ??C (97.8 ??F) 06/12/2024 12:[address] Respiratory Rate 18 06/12/2024 12:52 PM EST Oxygen Saturation - - Inhaled Oxygen Concentration - - Weight 67 kg (147 lb 12.8 oz) 06/12/2024 12:52 P M EST Height 149.9 cm (4' 11 ) 06/12/2024 12:52 PM EST Body Mass Index 29.85 06/12/2024 12:52 PM EST documented in this encounter Plan of Treatment Not on file documented as of this encounter Procedures Procedure Name Priority Date/Time Associated Diagnosis Comments XR FOOT 3+ VIEWS RIGHT Routine 06/12/2024 1:30 PM EST Abscess of fifth toe, right documented in this encounter Results * XR Foot 3+ Views Right (06/12/2024 1:30 PM EST) Anatomical Region Laterality Modality Lower Extremities, Foot Right [facility] 06/12/2024 1:30 PM EST Narrative 06/12/2024 2:06 PM EST ?[facility] ?[address] ?[place] [address] ?XRay Report ? Signed ? Patient: Salter,Susannah ?MR#: [id number] ?? [id number] ? : 1975 ?Acct:[id number] ? Age/Sex: 48 / F ?ADM Date: 02/24/25 ? Loc: HO.HHCX ? Attending Dr: Makenzie Lala MD ? Ordering Physician: Makenzie Lala MD ?? Date of Service: 06/12/24 ?? Procedure(s): XR foot RT min 3V ?? Accession Number(s): [id number] ? cc: Makenzie Lala MD ? EXAMINATION: ??XR FOOT 3 OR MORE VIEWS RIGHT ? HISTORY: right toe abscess ? COMPARISON: There are no prior studies available for comparison. ? FINDINGS: ? Four views of the right foot are submitted. ??Osseous mineralization is ?? normal. ??There is no fracture or dislocation. ??The joint spaces are ?? preserved. ??There is soft tissue swelling over the 5th MTP joint. ? XR/XR foot RT min 3V ?? IMPRESSION: ? Soft tissue swelling over the 5th MTP joint. No plain film evidence of ?? osteomyelitis. If this is a clinical concern, three-phase bone scan or ?? MRI is recommended. ? Electronically signed by: ??Dusty Hampton MD ??06/12/2024 02:03 PM EST ? Dictated By: ?Dusty Hampton MD ? Signed By: ?<Electronically signed by Dusty Hampton MD in OV> ?06/12/24 1403 ? DD/ 1330 ? TD/TT: 06/12/24 1351 ? Sterile Processing Tech: ? Procedure Note Marina, Image - 06/12/[address] [address] XRay Report Signed Patient: Antonio Salter#: [id number] : 1975Acct:[id number] Age/Sex: 48 / FADM Date: 06/12/24 Loc: HO.HHCX Attending Dr: Makenzie Lala MD Ordering Physician: Makenzie Lala MD Date of Service: 06/12/24 Procedure(s): XR foot RT min 3V Accession Number(s): [id number] cc: Makenzie Lala MD EXAMINATION: XR FOOT 3 OR MORE VIEWS RIGHT HISTORY: right toe abscess COMPARISON: There are no prior studies available for comparison. FINDINGS: Four views of the right foot are submitted. Osseous mineralization is normal. There is no fracture or dislocation. The joint spaces are preserved. There is soft tissue swelling over the 5th MTP joint. XR/XR foot RT min 3V IMPRESSION: Soft tissue swelling over the 5th MTP joint. No plain film evidence of osteomyelitis. If this is a clinical concern, three-phase bone scan or MRI is recommended. Electronically signed by: Dusty Hampton MD 06/12/2024 02:03 PM EST RP Dictated By: Dusty Hampton MD Signed By: <Electronically signed by Dusty Hampton MD in OV> 06/12/24 1403 DD/ 1330 TD/TT: 06/12/24 1351 Sterile Processing Tech: Makenzie Lala MD IMG XR PROCEDURES Final Result documented in this encounter Visit Diagnoses Diagnosis Abscess of fifth toe, right- Primary Encounter for immunization documented in this encounter Additional Health Concerns Assessment Noted Time PHQ-9 Depression Total Score: 8 05/15/19 23 2:12 PM EST documented as of this encounter Care Teams Plasterer Spot Relationship Specialty Start Date End Date María Norris ANP [address] [place] [phone] PCP - General Family Medicine 02/28/20 documented as of this encounter
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
--- OUTSIDE RECORDS SUMMARY | 2024-06-12 15:28 | XMS_ITS | Encounter Summary ---
Author Organization [employer] Address [address] [facility] 7t [place] [address] Care Team Providers Care Deckhand Clam Dredge Name Role Phone María Norris Primary Care Provider [phone] Reason for Visit * Reason Onset Date Comments Nurse Triage 12/31/2022 Encounter Details Date Type Department Care Team ([facility] st Contact Info) Description 12/31/2022 Telephone [facility] [address] [place], [place] [phone] María Norris ANP [address] [place], [place] [phone] Nurse Triage Social History Tobacco Use Types Packs/Day Years Used Date Smoking Tobacco: Every Day Cigarettes Passive Smoke Exposure: Current Smokeless Tobacco: Never Depression Answer Date Recorded Patient Health Questionnaire-9 Score 8 05/15/2022 Depression Answer Date Recorded Patient Health Questionnaire-2 Score 4 05/15/2022 Comments Unknown Sex and Gender Information Value Date Recorded Sex Assigned at Female 02/16/2022 10:21 AM EDT Legal Sex Female 10:21 AM EDT Gender Identity Female 02/16/2022 10:21 AM EDT Sexual Orientation Straight 02/16/2022 10 :21 AM EDT documented as of this encounter Miscellaneous Notes * Telephone Encounter - Douglas Vasquez - 12/31/2022 3:04 PM EDT Tc from pt requesting to r/s appt for SICK ON SITE on 12/25/2022 @ 11:15 am . Pt states she is still having same symptoms ( Vaginal Symptoms ) Please contact pt at [phone] documented in this encounter Plan of Treatment Not on file documented as of this encounter Visit Diagnoses Not on filedocumented in this encounter Additional Health Concerns Assessment Noted Time PHQ-9 Depression Total Score: 8 05/15/19 23 2:12 PM EST documented as of this encounter Care Teams Deckhand Clam Dredge Relationship Specialty Start Date End Date María Norris ANP [address] [place] [address] PCP - General Family Medicine 02/28/20 documented as of this encounter
--- OUTSIDE RECORDS SUMMARY | 2024-06-12 15:28 | XMS_ITS | Clinical Summary ---
Author Organization [facility] it[facility] Address [address] [place] [address] Care Team Providers Care Networks Computer Consultant Name Role Phone Unavailable Primary Care Provider Unavailabl e Social History Tobacco Use Types Packs/Day Years Used Date Smoking Tobacco: Never Assessed Comments Unknown Sex and Gender Information Value Date Recorded Sex Assigned at Not on file Legal Sex Female 3:43 PM EDT Gender Identity Not on file Sexual Orientation Not on file Plan of Treatment Health Maintenance Due Date Last Done Comments Breast Cancer Screening 1975 DTaP,Tdap,and Td Vaccines (1 - Tdap) 07/22/1994 Hepatitis B Vaccines (1 of 3 - 19+ 3-dose series) 07/22/1994 Cervical Cancer Screening: P ap Smear 07/22/1996 COVID-19 Vaccine ( - 2023-2 5 season) 2023 Influenza Vaccine (#1) 2023 Colorectal Cancer Screening: Colonoscopy 02/13/2024 Depression Screening 02/13/2024 HIV Screening 02/13/2024 Hepatitis C Screening 02/13/2024 Social Influencers of Health Screening 02/13/2024 HIB Vaccines Aged Out No longer eligi ble based on patient's age to complete this topic HPV Vaccines Aged Out No longer eligi ble based on patient's age to complete this topic Hepatitis A Vaccines Aged Out No long er eligible based on patient's age to complete this topic IPV Vaccines Aged Out No longer eligi ble based on patient's age to complete this topic MMR Vaccines Aged Out No longer eligi ble based on patient's age to complete this topic Meningococcal ACWY Vaccine Aged Out N o longer eligible based on patient's age to complete this topic Meningococcal B Vacine Aged Out No lo nger eligible based on patient's age to complete this topic Pneumococcal Vaccine: Pediat rics (0 to 5 Years) and At-Risk Patients (6 to 64 Years) Aged Out No longer eligible b ased on patient's age to complete this topic RSV Immunization Patients Un elia 20 months Aged Out No longer eligible b ased on patient's age to complete this topic Varicella Vaccines Aged Out No longer eligible based on patient's age to complete this topic
--- OUTSIDE RECORDS SUMMARY | 2024-06-12 15:28 | XMS_ITS | Clinical Summary ---
Author Organization [facility] Address [address] [place] [address] Care Team Providers Care Gas Appliance Mechanic Name Role Phone Unavailable Primary Care Provider Unavailabl e Source Comments PLEASE NOTE, if this patient is a minor, it may be UNLAWFUL to discuss sensitive information that is contained in these records (such as FAMILY PLANNING, MENTAL HEALTH or SUBSTANCE ABUSE) with the minor patient's parent or other person without the patient's specific authorization.[facility] Immunizations Name Administration Dates Next Due Moderna COVID-19 (Spikevax), Mrna, Lnp-s, Pf, 50 Mcg/0.5 Ml, 12yr+ 02/12/2024 Social History Tobacco Use Types Packs/Day Years Used Date Smoking Tobacco: Never Assessed Comments Unknown Sex and Gender Information Value Date Recorded Sex Assigned at Not on file Legal Sex Female 7:54 AM PDT Gender Identity Not on file Sexual Orientation Not on file Plan of Treatment Health Maintenance Due Date Last Done Comments Diabetes Screening 1975 HPV Screening 1975 Hepatitis C Screening 1975 Lipid Screening 1975 Pap + HPV 1975 Tobacco Screening 1975 HIV Screening 07/22/1990 Relationship Safety Screening/Counseling 07/22/1990 Hypertension Screening (#1) 07/22/1993 Medicare Annual Wellness Visit 07/22/1993 Cervical Cancer Screening 07/22/1996 Pap Smear 07/22/1996 CT Colonography 07/22/2020 Colonoscopy 07/22/2020 Colorectal Cancer Screening 07/22/2020 FIT/gFOBT 07/22/2020 Fecal DNA 07/22/2020 Flexible Sigmoidoscopy 07/22/2020 Breast Cancer Screening (Mammogram) 06/18/2022 06/18/2020 Imm-Influenza (#1) 2023 01/19/2020, 0 12/30/2018, 01/17/2018, Additional history exists Alcohol and Drug Screen 04/19/2024 Depression Annual Screen 04/19/2024 Imm-DTaP/Tdap/Td (3 - Td or Tdap) 07/11/2030 07/11/2020, 12/27/2017, 07/24/2010 Imm-Hepatitis B Completed 09/26/2019, 09/18, 02/27/2011, Additional history exists [id number] Completed 02/12/2024, 05/27/2022 Cervical Ablation/Cold-Knife Conization Discontinued Cervical Cryotherapy Discontinued Colposcopy Discontinued Endometrial Biopsy Discontinued Excision/Leep Discontinued HPV Genotyping Discontinued Vaginal Pap Discontinued Vulvoscopy Discontinued Insurance [facility] Member Subscriber Plan / Payer (Ef fective 2023-Present) Name:Susannah Salter Relation to Subscriber:Self Name:Susannah Salter Payer ID:[id number] Group ID:Not on file Type:Indemnity Address: [place] [address] [address] [facility]
== END 2024-06-12 13:31 | disposition home or self-care (01) ==
LOC: HO.HHCX 13:30
PROVIDERS: Visit Provider Internal Medicine
DX: L02.611 Cutaneous abscess of right foot (principal)
CPT/HCPCS: 73630

== ENCOUNTER → 2024-06-12 13:30 | Outpatient (BNV) | payer OTHER, SELFPAY | PROVIDERS: Visit Provider Radiology Diagnostic Radiology | DX: R22.41 Localized swelling, mass and lump, right lower limb (principal) | CPT/HCPCS: 73630 ==